=== PATIENT | male | born 1990 | race Caucasian/White ===

== ENCOUNTER 2016-12-29 09:58 | Emergency (ER) | payer SELFPAY ==
[2016-12-29 11:05] LABS: #Basophils 0.1 thou/uL (0.0-0.2); #Eosinphils 0.5 thou/uL (0.0-0.7); #Lymphocytes 2.5 thou/uL (1.20-3.40); #Monocytes 0.7 thou/uL (0.11-0.59); #Neutrophils 4.7 thou/uL (1.40-6.50); %Basophils 0.9 % (0.0-1.0); %Eosinophils 5.9 % (0.0-10.0); %Lymphocytes 29.4 % (21.0-51.0); %Monocytes 8.6 % (0.0-10.0); Hematocrit 47.5 % (42.0-52.0); Mean Platelet Volume 6.7 fL (7.4-10.4); Red Blood Cell (RBC) Count 5.43 mill/uL (4.70-6.10); White Blood Cell (WBC) Count 8.4 thou/uL (4.8-10.8)
[2016-12-29 11:27] LABS: ALT (SGPT) 55 U/L (8-55); AST (SGOT) 31 U/L (5-34); Alkaline Phosphatase 67 U/L (40-150); Anion Gap 11 mmol/L (10-20); BUN (Urea Nitrogen) 9 mg/dL (8.9-20.6); Bilirubin, Total 0.5 mg/dL (0.2-1.2); Calc. Creatinine Clearance 0 mL/min (70-130); Calcium 9.5 mg/dL (7.8-10.44); Carbon Dioxide 28 mmol/L (22-29); Chloride 103 mmol/L (98-107); Estimated GFR-MDRD Greater than 90; Lipase 33 U/L (8-78); Protein, Total 7.2 g/dL (6.0-8.3)
== END 2016-12-29 11:59 | disposition home or self-care (01) ==
LOC: ERS 09:58
DX: R19.7 Diarrhea, unspecified (principal); F90.9 Attention-deficit hyperactivity disorder, unspecified type; F31.9 Bipolar disorder, unspecified; F17.210 Nicotine dependence, cigarettes, uncomplicated
CPT/HCPCS: 36415; 80053; 83690; 85025; 99284

== ENCOUNTER 2017-04-22 17:08 | Emergency (ER) | payer SELFPAY ==
[2017-04-22] MEDS ORDERED: Ketorolac Tromethamine 30 MG/ML VIAL ONE (17:43)
--- NOTE | 2017-04-22 18:36 | RAD ---
THORACIC SPINE THREE VIEWS: History: Back pain while at work. FINDINGS: There is very mild scoliotic changes of the spine. Leftward curve is convex to the right. Vertebral b odies are normal in height. There is minimal osteophytic change of the lower thoracic spine. Pedicles are intact. IMPRESSION: Minimal scoliosis. POS: [facility]
== END 2017-04-22 19:38 | disposition home or self-care (01) ==
LOC: ERS 17:08
DX: M54.6 Pain in thoracic spine (principal); J45.909 Unspecified asthma, uncomplicated; F31.9 Bipolar disorder, unspecified; F17.210 Nicotine dependence, cigarettes, uncomplicated; M41.9 Scoliosis, unspecified
CPT/HCPCS: 72072; 96372; J1885

== ENCOUNTER 2017-04-26 13:11 | Emergency (ER) | payer SELFPAY, OTHER | END 2017-04-26 13:56 | disposition home or self-care (01) | LOC: ERS 13:11 | DX: G89.29 Other chronic pain (principal); M54.5 Low back pain; J45.909 Unspecified asthma, uncomplicated; F31.9 Bipolar disorder, unspecified; F90.9 Attention-deficit hyperactivity disorder, unspecified type; F17.210 Nicotine dependence, cigarettes, uncomplicated; Z79.899 Other long term (current) drug therapy | CPT/HCPCS: 99283 ==

== ENCOUNTER 2017-06-03 11:39 | Emergency (ER) | payer SELFPAY, OTHER ==
--- NOTE | 2017-06-03 13:07 | RAD ---
RIGHT HAND THREE VIEWS: HISTORY: Right hand pain. FINDINGS: No fracture, dislocation, or bony destruction is seen in the bones of the hand. There is a lucency in the distal radius on one of the views. The possibility of this representing a fracture cannot be excluded. Dedicated radiographs of the right wrist should be performed. CODE T POS: [email or web address]
--- NOTE | 2017-06-03 13:18 | RAD ---
RIGHT WRIST THREE VIEWS: HISTORY: Injury. Right wrist pain. FINDINGS: No fracture or dislocation is seen. If there is tenderness in the anatomic snuffbox and symptoms do not improve, a follow-up exam should be obtained in 7-10 days. POS: [facility]
== END 2017-06-03 13:21 | disposition home or self-care (01) ==
LOC: ERS 11:39
DX: S60.221A Contusion of right hand, initial encounter (principal); J45.909 Unspecified asthma, uncomplicated; M41.9 Scoliosis, unspecified; F31.9 Bipolar disorder, unspecified; F90.9 Attention-deficit hyperactivity disorder, unspecified type; F17.210 Nicotine dependence, cigarettes, uncomplicated; Z71.6 Tobacco abuse counseling; W22.8XXA Striking against or struck by other objects, initial encounter
CPT/HCPCS: 99406

== ENCOUNTER 2017-06-10 08:15 | Emergency (ER) | payer SELFPAY | END 2017-06-10 08:57 | disposition home or self-care (01) | LOC: ERS 08:15 | DX: J32.9 Chronic sinusitis, unspecified (principal); J40 Bronchitis, not specified as acute or chronic; M41.9 Scoliosis, unspecified; F17.210 Nicotine dependence, cigarettes, uncomplicated; Z71.6 Tobacco abuse counseling | CPT/HCPCS: 87081; 87430; 99406 ==

== ENCOUNTER 2017-06-30 19:44 | Emergency (ER) | payer SELFPAY | END 2017-06-30 20:20 | disposition home or self-care (01) | LOC: ERS 19:44 | DX: B34.9 Viral infection, unspecified; F90.9 Attention-deficit hyperactivity disorder, unspecified type; J45.909 Unspecified asthma, uncomplicated; F31.9 Bipolar disorder, unspecified; F17.210 Nicotine dependence, cigarettes, uncomplicated | CPT/HCPCS: 99406 ==

== ENCOUNTER 2017-07-17 09:07 | Emergency (ER) | payer OTHER, SELFPAY ==
[2017-07-17 10:15] LABS: #Eosinphils 0.2 thou/uL (0.0-0.7); #Lymphocytes 2.3 thou/uL (1.20-3.40); #Monocytes 0.6 thou/uL (0.11-0.59); #Neutrophils 4.2 thou/uL (1.40-6.50); %Basophils 0.5 % (0.0-1.0); %Eosinophils 3.2 % (0.0-10.0); %Lymphocytes 30.6 % (21.0-51.0); %Monocytes 8.6 % (0.0-10.0); %Neutrophils 57.1 % (42.0-75.0); Hemoglobin 15.4 g/dL (14.0-18.0); Mean Corpuscular HGB CONC 34.7 g/dL (32.0-36.0); Mean Corpuscular Hemoglobin 29.7 pg (27.0-31.0); Mean Corpuscular Volume 85.5 fl (80.0-94.0); Mean Platelet Volume 6.7 fL (7.4-10.4); Platelet Count 319 thou/uL (130-400); RBC Distribution Width 11.8 % (11.5-14.5); Red Blood Cell (RBC) Count 5.17 mill/uL (4.70-6.10); White Blood Cell (WBC) Count 7.4 thou/uL (4.8-10.8)
[2017-07-17 10:29] LABS: ALT (SGPT) 60 U/L (8-55); AST (SGOT) 34 U/L (5-34); Albumin 4.2 g/dL (3.5-5.0); Alkaline Phosphatase 67 U/L (40-150); Anion Gap 10 mmol/L (10-20); BUN (Urea Nitrogen) 6 mg/dL (8.9-20.6); Bilirubin, Total 0.5 mg/dL (0.2-1.2); Calc. Creatinine Clearance 0 mL/min (70-130); Calcium 9.3 mg/dL (7.8-10.44); Carbon Dioxide 28 mmol/L (22-29); Chloride 105 mmol/L (98-107); Estimated GFR-MDRD Greater than 90; Globulin 2.6 g/dL (2.4-3.5); Glucose 95 mg/dL (70-105); Potassium 3.9 mmol/L (3.5-5.1); Protein, Total 6.8 g/dL (6.0-8.3); Sodium 139 mmol/L (136-145)
== END 2017-07-17 12:33 | disposition home or self-care (01) ==
LOC: ERS 09:07
DX: R19.7 Diarrhea, unspecified (principal); J45.909 Unspecified asthma, uncomplicated; F31.9 Bipolar disorder, unspecified; F90.9 Attention-deficit hyperactivity disorder, unspecified type; F17.210 Nicotine dependence, cigarettes, uncomplicated
CPT/HCPCS: 36415; 80053; 85025; 99284

== ENCOUNTER 2017-10-23 21:35 | Emergency (ER) | payer SELFPAY ==
[2017-10-23 22:13] LABS: Bilirubin Negative (Negative); Blood, Urine Negative (Negative); Clarity CLEAR (Clear); Glucose, Urine (Dipstick) Negative (Negative); Leukocyte Negative (Negative); Nitrite Negative (Negative); Protein, Urine (Dipstick) Negative (Neg-Trace); Specific Gravity, Urine 1.026 (1.002-1.036)
[2017-10-23 22:42] LABS: #Basophils 0.1 thou/uL (0.0-0.2); #Eosinphils 0.3 thou/uL (0.0-0.7); #Lymphocytes 3.1 thou/uL (1.20-3.40); #Monocytes 0.8 thou/uL (0.11-0.59); %Basophils 0.7 % (0.0-1.0); %Lymphocytes 27.2 % (21.0-51.0); %Monocytes 7.1 % (0.0-10.0); %Neutrophils 62.1 % (42.0-75.0); Hemoglobin 14.8 g/dL (14.0-18.0); Mean Corpuscular HGB CONC 35.3 g/dL (32.0-36.0); Mean Corpuscular Hemoglobin 29.7 pg (27.0-31.0); Mean Corpuscular Volume 84.1 fL (78.0-98.0); Mean Platelet Volume 6.7 fL (7.4-10.4); Platelet Count 309 thou/uL (130-400); RBC Distribution Width 11.7 % (11.5-14.5); Red Blood Cell (RBC) Count 4.98 mill/uL (4.70-6.10); White Blood Cell (WBC) Count 11.2 thou/uL (4.8-10.8)
[2017-10-23 23:09] LABS: ALT (SGPT) 61 U/L (8-55); AST (SGOT) 33 U/L (5-34); Albumin 4.4 g/dL (3.5-5.0); Alkaline Phosphatase 69 U/L (40-150); Anion Gap 11 mmol/L (10-20); BUN (Urea Nitrogen) 10 mg/dL (8.9-20.6); Bilirubin, Total 0.6 mg/dL (0.2-1.2); Calc. Creatinine Clearance 0 mL/min (70-130); Calcium 9.4 mg/dL (7.8-10.44); Carbon Dioxide 25 mmol/L (22-29); Chloride 106 mmol/L (98-107); Estimated GFR-MDRD Greater than 90; Globulin 2.9 g/dL (2.4-3.5); Glucose 94 mg/dL (70-105); Potassium 3.2 mmol/L (3.5-5.1); Protein, Total 7.3 g/dL (6.0-8.3); Sodium 139 mmol/L (136-145)
[2017-10-24] MEDS ORDERED: Ondansetron ODT 4 MG TAB ONE (00:28)
== END 2017-10-24 01:19 | disposition home or self-care (01) ==
LOC: ERS 21:35
DX: R11.2 Nausea with vomiting, unspecified (principal); R19.7 Diarrhea, unspecified; J45.909 Unspecified asthma, uncomplicated; F90.9 Attention-deficit hyperactivity disorder, unspecified type; F31.9 Bipolar disorder, unspecified; F17.210 Nicotine dependence, cigarettes, uncomplicated
CPT/HCPCS: 36415; 80053; 81003; 85025; 99284; Q0162

== ENCOUNTER 2017-11-22 10:45 | Emergency (ER) | payer SELFPAY ==
[2017-11-22] MEDS ORDERED: Promethazine 25 MG TAB ONE (11:34)
--- NOTE | 2017-11-22 12:05 | RAD ---
ABDOMEN 1 VIEW: Date: 11/22/17 HISTORY: Abdominal pain. Nausea and vomiting. FINDINGS: No comparison. Gas and stool are apparent throughout the colon and rectum. Small bowel gas pattern is nonspecific. N o radiopaque foreign bodies are apparent. IMPRESSION: No significant abnormalities are demonstrated. POS: [facility]
== END 2017-11-22 13:26 | disposition home or self-care (01) ==
LOC: ERS 10:45
DX: E86.0 Dehydration (principal); R19.7 Diarrhea, unspecified; J45.909 Unspecified asthma, uncomplicated; F90.9 Attention-deficit hyperactivity disorder, unspecified type; F17.210 Nicotine dependence, cigarettes, uncomplicated; Z71.6 Tobacco abuse counseling
CPT/HCPCS: 74018; 93005; 99406

== ENCOUNTER 2017-11-23 16:21 | Emergency (ER) | payer SELFPAY | END 2017-11-23 17:39 | disposition home or self-care (01) | LOC: ERS 16:21 | DX: B34.9 Viral infection, unspecified (principal); R19.7 Diarrhea, unspecified; Z71.6 Tobacco abuse counseling; J45.909 Unspecified asthma, uncomplicated; F31.9 Bipolar disorder, unspecified; F90.9 Attention-deficit hyperactivity disorder, unspecified type; F17.210 Nicotine dependence, cigarettes, uncomplicated | CPT/HCPCS: 99281 ==

== ENCOUNTER 2018-01-03 13:59 | Emergency (ER) | payer SELFPAY | END 2018-01-03 14:57 | disposition home or self-care (01) | LOC: ERS 13:59 | DX: J30.9 Allergic rhinitis, unspecified (principal); R11.2 Nausea with vomiting, unspecified; Z71.6 Tobacco abuse counseling; J45.909 Unspecified asthma, uncomplicated; F31.9 Bipolar disorder, unspecified; F90.9 Attention-deficit hyperactivity disorder, unspecified type; F17.210 Nicotine dependence, cigarettes, uncomplicated | CPT/HCPCS: 99406 ==

== ENCOUNTER 2018-01-17 05:25 | Emergency (ER) | payer SELFPAY ==
[2018-01-17] MEDS ORDERED: Ondansetron ODT 4 MG TAB ONE (05:49)
== END 2018-01-17 05:54 | disposition home or self-care (01) ==
LOC: ERS 05:25
DX: R11.2 Nausea with vomiting, unspecified (principal); R19.7 Diarrhea, unspecified; J45.909 Unspecified asthma, uncomplicated; F90.9 Attention-deficit hyperactivity disorder, unspecified type; M41.9 Scoliosis, unspecified; F31.9 Bipolar disorder, unspecified; F17.210 Nicotine dependence, cigarettes, uncomplicated
CPT/HCPCS: 99283; Q0162

== ENCOUNTER 2018-03-21 09:33 | Emergency (ER) | payer SELFPAY | END 2018-03-21 11:15 | disposition home or self-care (01) | LOC: ERS 09:33 | DX: R11.2 Nausea with vomiting, unspecified (principal); F90.9 Attention-deficit hyperactivity disorder, unspecified type; J45.909 Unspecified asthma, uncomplicated; F17.210 Nicotine dependence, cigarettes, uncomplicated | CPT/HCPCS: 99283 ==

== ENCOUNTER 2018-05-01 18:54 | Emergency (ER) | payer SELFPAY | END 2018-05-01 19:15 | disposition home or self-care (01) | LOC: ERS 18:54 | DX: R19.7 Diarrhea, unspecified (principal); F90.9 Attention-deficit hyperactivity disorder, unspecified type; F31.9 Bipolar disorder, unspecified; F17.210 Nicotine dependence, cigarettes, uncomplicated | CPT/HCPCS: 99283 ==

== ENCOUNTER 2018-06-12 14:44 | Emergency (ER) | payer SELFPAY ==
--- NOTE | 2018-06-12 16:36 | CT ---
CT OF THE BRAIN WITHOUT CONTRAST: Date: 06/12/18 INDICATION: History of dizziness and blackout spells. COMPARISON: None. FINDINGS: No acute infarct, hemorrhage, or hydrocephalus is present. Septum pellucidum and third ventricle are midline. The skull and extracranial soft tissues appear within normal limits. IMPRESSION: No acute intracranial abnormality. POS: [facility]
== END 2018-06-12 17:00 | disposition home or self-care (01) ==
LOC: ERS 14:44
DX: R51 Headache (principal); J45.909 Unspecified asthma, uncomplicated; F31.9 Bipolar disorder, unspecified; F90.9 Attention-deficit hyperactivity disorder, unspecified type; F17.210 Nicotine dependence, cigarettes, uncomplicated
CPT/HCPCS: 70450

== ENCOUNTER 2019-01-29 11:55 | Emergency (ER) | payer SELFPAY ==
[2019-01-29] MEDS ORDERED: Ondansetron ODT 4 MG TAB ONE (12:33)
== END 2019-01-29 13:33 | disposition home or self-care (01) ==
LOC: ERS 11:55
DX: R11.2 Nausea with vomiting, unspecified (principal); J45.909 Unspecified asthma, uncomplicated; F90.9 Attention-deficit hyperactivity disorder, unspecified type; F17.210 Nicotine dependence, cigarettes, uncomplicated
CPT/HCPCS: 99283; Q0162

== ENCOUNTER 2019-04-29 02:35 | Emergency (ER) | payer SELFPAY | END 2019-04-29 03:07 | disposition home or self-care (01) | LOC: ERS 02:35 | DX: G89.29 Other chronic pain (principal); M54.5 Low back pain; M54.6 Pain in thoracic spine; J45.909 Unspecified asthma, uncomplicated; F31.9 Bipolar disorder, unspecified; F90.9 Attention-deficit hyperactivity disorder, unspecified type; F17.210 Nicotine dependence, cigarettes, uncomplicated | CPT/HCPCS: 99283 ==

== ENCOUNTER 2019-05-19 14:53 | Emergency (ER) | payer SELFPAY | END 2019-05-19 16:58 | disposition home or self-care (01) | LOC: ERS 14:53 | DX: R11.2 Nausea with vomiting, unspecified (principal); R19.7 Diarrhea, unspecified; J45.909 Unspecified asthma, uncomplicated; F31.9 Bipolar disorder, unspecified; F17.210 Nicotine dependence, cigarettes, uncomplicated | CPT/HCPCS: 99283 ==

== ENCOUNTER 2021-10-28 02:21 | Emergency (ER) | payer SELFPAY | END 2021-10-28 05:21 | disposition home or self-care (01) | LOC: ERS 02:21 | DX: S09.90XA Unspecified injury of head, initial encounter (principal); S00.83XA Contusion of other part of head, initial encounter; F10.129 Alcohol abuse with intoxication, unspecified; F17.210 Nicotine dependence, cigarettes, uncomplicated; Y09 Assault by unspecified means | CPT/HCPCS: 70450; 70486; 72125; 96360 ==